=== PATIENT | female | born 1975 | race Caucasian/White ===

== ENCOUNTER 2019-03-20 08:06 | Day surgery (SDC) | payer BC ==
[2019-03-13 12:44] VITALS: BMI 24.0
[2019-03-20] MEDS ORDERED: LIDOCAINE HCL/PF 2% SDV 5ML VIAL ONE (09:17)
[2019-03-20] MEDS ORDERED: PROPOFOL 20 ML ONE (09:17)
[2019-03-20 10:12] VITALS: TEMP 97.9
[2019-03-20 10:16] VITALS: BP 152/78; PULSE 62
--- NOTE | 2019-03-24 17:11 | PATH ---
Surgical Pathology Report Patient Name: CARA THORPE [facility]. Rec. #: [id number] /Age/Gender: 1975 (Age: 43) / F Account: [id number] Location: [facility] Taken: 03/20/2019 Received: 03/20/2019 Reported: 03/24/2019 Physicians: Aaron Persaud M.D. Specimen(s) Received A: SECOND PORTION DUODENUM B: ANTRUM C: DISTAL ESOPHAGUS Clinical History Peptic ulcer disease Postoperative diagnosis: Gastritis Final Diagnosis A. SECOND PORTION DUODENUM, BIOPSY: DUODENUM MUCOSA WITH NO SIGNIFICANT PATHOLOGIC CHANGE. NO HISTOLOGIC EVIDENCE OF CELIAC DISEASE. B. GASTRIC ANTRUM, BIOPSY: GASTRIC MUCOSA WITH CHRONIC GASTRITIS. IMMUNOSTAIN FOR H. PYLORI IS NEGATIVE. NEGATIVE FOR INTESTINAL METAPLASIA. C. DISTAL ESOPHAGUS, BIOPSY: ESOPHAGEAL MUCOSA WITH MILD REFLUX ESOPHAGITIS. NEGATIVE FOR INTESTINAL METAPLASIA. Electronically Signed Norma Herrera M.D. Gross Description A. Received in formalin, labeled "biopsy second portion of duodenum" are 2 ortiz, irregular portions of soft tissue measuring 0.3 and 0.4 cm. in greatest dimension. The specimens are submitted in toto in one cassette. B. Received in formalin, labeled "biopsy gastric antrum" are 2 ortiz, irregular portions of soft tissue averaging 0.3 cm. in greatest dimension. The specimens are submitted in toto in one cassette. C. Received in formalin, labeled "biopsy distal esophagus" is a ortiz, irregular portion of soft tissue measuring 0.4 cm. in greatest dimension. The specimen is submitted in toto in one cassette. 03/21/2019 [facility]03/21/2019
== END 2019-03-20 10:25 | disposition home or self-care (01) ==
LOC: FASU-ENDO 08:06
PROVIDERS: ATTEND Internal Medicine Gastroenterology
PROC: 0DB68ZX Excision of Stomach, Via Natural or Artificial Opening Endoscopic, Diagnostic (ICD-10-PCS; 2019-03-20)
PROC: 0DB48ZX Excision of Esophagogastric Junction, Via Natural or Artificial Opening Endoscopic, Diagnostic (ICD-10-PCS; 2019-03-20)
PROC: 0DB98ZX Excision of Duodenum, Via Natural or Artificial Opening Endoscopic, Diagnostic (ICD-10-PCS; principal; 2019-03-20 09:20)
DX: K29.50 Unspecified chronic gastritis without bleeding (principal); K21.0 Gastro-esophageal reflux disease with esophagitis; R12 Heartburn
CPT/HCPCS: 82962; 84703; 88305-TC; 88342-TC